=== PATIENT | male | born 1975 | race Caucasian/White ===

== ENCOUNTER 2018-05-18 17:41 | Inpatient (IN) | payer OTHER ==
[2018-05-18 18:40] VITALS: BMI 22.4
--- NOTE | 2018-05-18 19:29 | HP ---
CIWA Score Nausea/Vomitin-No Nausea/No Vomiting Muscle Tremors: 4-Moderate,w/Arms Extend Anxiety: 3 Agitation: 3 Paroxysmal Sweats: 3 Orientation: 0-Oriented Tacttile Disturbances: 0-None Auditory Disturbances: 0-None Visual Disturbances: 0-None Headache: 3-Moderate CIWA-Ar Total Score: 16 - Admission Criteria [facility]ASAS Guidelines: Admission for Medically Managed Detox: Requires at least one of the followin. CIWA greater than 12 2. Seizures within the past 24 hours 3. Delirium tremens within the past 24 hours 4. Hallucinations within the past 24 hours 5. Acute intervention needed for co occurring medical disorder 6. Acute intervention needed for co occurring psychiatric disorder 7. Severe withdrawal that cannot be handled at a lower level of care (continued vomiting, continued diarrhea, abnormal vital signs) requiring intravenous medication and/or fluids 8. Admission ROS BHS - HPI Chief Complaint: I need to get help and need to stop drinking. Allergies/Adverse Reactions: Allergies Allergy/AdvReac Type Severity Reaction Status Date / Time No Known Allergies Allergy Verified 05/18/18 19:22 History of Present Illness: pt is a 43yr old male with a history of alcohol dependence seeking detox for treatment. Exam Limitations: Intoxication - Ebola screening Have you traveled outside of the country in the last 21 days: No (N) Have you had contact with anyone from an Ebola affected area: No Have you been sick,other than usual withdrawal symptoms: No Do you have a fever: No - Review of Systems Constitutional: Diaphoresis, Night Sweats, Changes in sleep EENT: reports: No Symptoms Reported Respiratory: reports: No Symptoms reported Cardiac: reports: Syncope GI: reports: Diarrhea, Poor Appetite, Poor Fluid Intake, Indigestion : reports: No Symptoms Reported Musculoskeletal: reports: Muscle Pain Integumentary: reports: Flushing, Sweating Neuro: reports: Headache, Tingling, Tremors Endocrine: reports: Excessive Sweating, Flushing, Intolerance to Cold, Intolerance to Heat Hematology: reports: No Symptoms Reported Psychiatric: reports: No Sypmtoms Reported, Judgement Intact, Mood/Affect Appropiate, Orientated x3, Agitated Other Systems: Reviewed and Negative Patient History - Patient Medical History Hx Anemia: No Hx Asthma: No Hx Chronic Obstructive Pulmonary Disease (COPD): No Hx Cancer: No Hx Cardiac Disorders: No Hx Congestive Heart Failure: No Hx Hypertension: No Hx Hypercholesterolemia: No Hx Pacemaker: No HX Cerebrovascular Accident: No Hx Seizures: No Hx Dementia: No Hx Diabetes: No Hx Gastrointestinal Disorders: No Hx Liver Disease: No Hx Genitourinary Disorders: No Hx Sexually Transmitted Disorders: No Hx Renal Disease (ESRD): No Hx Thyroid Disease: No Hx Human Immunodeficiency Virus (HIV): No (negative) Hx Hepatitis C: No (negative) Hx Depression: No Hx Suicide Attempt: No Hx Bipolar Disorder: No Hx Schizophrenia: No - Patient Surgical History Past Surgical History: No - PPD History Previous Implant?: Yes Documented Results: Negative w/proof PPD to be Administered?: Yes - Reproductive History Patient is a Female of Child Bearing Age (11 -55 yrs old): No - Smoking Cessation Smoking history: Current every day smoker Have you smoked in the past 12 months: Yes Aproximately how many cigarettes per day: 25 Hx Chewing Tobacco Use: No Initiated information on smoking cessation: Yes 'Breaking Loose' booklet given: 05/18/18 - Substance & Tx. History Hx Alcohol Use: Yes Hx Substance Use: No Substance Use Type: Alcohol Hx Substance Use Treatment: Yes (last detox 3moths ago) - Substances Abused Alcohol Route: Oral Frequency: Daily Amount used: 5liters beer/vodka Age of first use: 16 Date of Last Use: 05/18/18 Family Disease History - Family Disease History Family Disease History: CA: Father ( prostate CA) Admission Physical Exam BHS - Vital Signs Vital Signs: Vital Signs - 24 hr 05/18/18 18:39 Temperature 98.8 F Pulse Rate 116 H Respiratory 18 Rate Blood Pressure 144/93 - Physical General Appearance: Yes: Appropriately Dressed, Moderate Distress, Tremorous, Irritable, Sweating, Anxious HEENTM: Yes: Hearing grossly Normal, Normal Voice, Nasal Congestion, Rhinorrhea Respiratory: Yes: Lungs Clear, Normal Breath Sounds, No Respiratory Distress Neck: Yes: No masses,lesions,Nodules Breast: Yes: Within Normal Limits Cardiology: Yes: Regular Rhythm, Regular Rate, S1, S2 Abdominal: Yes: Normal Bowel Sounds, Non Tender, Flat Genitourinary: Yes: Within Normal Limits Back: Yes: Normal Inspection Musculoskeletal: Yes: Gait Steady, Back pain Extremities: Yes: Normal Capillary Refill, Normal Inspection, Non-Tender, Tremors Neurological: Yes: Fully Oriented, Alert, Normal Response Integumentary: Yes: Normal Color, Diaphoresis Lymphatic: Yes: Within Normal Limits - Diagnostic (1) Alcohol dependence with uncomplicated withdrawal Current Visit: Yes Status: Chronic (2) Nicotine dependence Current Visit: Yes Status: Chronic Qualifiers: Nicotine product type: cigarettes Substance use status: uncomplicated Qualified Code(s): F17.210 - Nicotine dependence, cigarettes, uncomplicated Cleared for Admission [facility] - Detox or Rehab [facility] Level of Care: Medically Managed Detox Regimen/Protocol: Librium [facility] Breath Alcohol Content Breath Alcohol Content: 0.135 Urine Drug Screen - Results Drug Screen Negative: Yes
[2018-05-18] MEDS ORDERED: chlordiazePOXIDE HCL 25 MG CAPSULE PO ONE (19:32)
[2018-05-18] MEDS ORDERED: MAGNESIUM CITRATE 300 ML BOTTLE PO PRN (19:32)
[2018-05-18] MEDS ORDERED: ACETAMINOPHEN 325 MG TABLET (FP) PO PRN (19:32)
[2018-05-18] MEDS ORDERED: NICOTINE POLACRILEX 4 MG GUM BC PRN (19:32)
[2018-05-18] MEDS ORDERED: MAGNESIUM HYDROX 2400MG/30ML ORAL SUSPENSION 30 ML CUP PO PRN (19:32)
[2018-05-18] MEDS ORDERED: P-EPHED 60MG/TRIPROLIDI 2.5MG TABLET PO PRN (19:32)
[2018-05-18] MEDS ORDERED: hydrOXYzine PAMOATE 50 MG CAPSULE (FP) PO PRN (19:32)
[2018-05-18] MEDS ORDERED: MAG HYDROX/AL HYDROX/SIMETH 30 ML UNIT-DOSE CUP PO PRN (19:32)
[2018-05-18] MEDS ORDERED: chlordiazePOXIDE HCL 25 MG CAPSULE PO PRN (19:32)
[2018-05-18] MEDS ORDERED: MENTHOL/PHENOL 1 EACH UD MM PRN (19:32)
[2018-05-18] MEDS ORDERED: IBUPROFEN 400 MG TABLET (FP) PO PRN (19:32)
[2018-05-18] MEDS ORDERED: guaiFENesin/D-METHORPHAN HB 10 ML UNIT-DOSE CUPS PO PRN (19:32)
[2018-05-18] MEDS ORDERED: LOPERAMIDE HCL 2 MG CAPSULE PO PRN (19:32)
[2018-05-18] MEDS: THIAMINE HCL 100 MG TABLET (FP) PO SCH (21:26)
[2018-05-18] MEDS: chlordiazePOXIDE HCL 25 MG CAPSULE PO SCH (23:15)
[2018-05-19] MEDS: chlordiazePOXIDE HCL 25 MG CAPSULE PO SCH ×4 (05:44→22:11)
--- NOTE | 2018-05-19 10:16 | PN ---
S CIWA - CIWA Score Nausea/Vomitin-Mild Nausea/No Vomiting Muscle Tremors: 3 Anxiety: 2 Agitation: 3 Paroxysmal Sweats: 1-Minimal Palms Moist Orientation: 1-Uncertain about Date Tacttile Disturbances: 1-Very Mild Itch/Numbness Auditory Disturbances: 0-None Visual Disturbances: 0-None Headache: 1-Very Mild CIWA-Ar Total Score: 13 BHS Progress Note (SOAP) Subjective: sweat mild gi distress tremor social with peers in day room Objective: 05/19/18 10:16 Vital Signs Temperature 97.0 F L 05/19/18 06:51 Pulse Rate 91 H 05/19/18 06:51 Respiratory Rate 18 05/19/18 06:51 Blood Pressure 112/78 05/19/18 06:51 O2 Sat by Pulse Oximetry (%) lab noted Assessment: 05/19/18 10:17 alcohol withdrawal sx Plan: continue alcohol detox
[2018-05-19] MEDS: PRENATAL VITAMINS W/ FOLIC ACID TABLET (FP) PO SCH (10:32)
[2018-05-19] MEDS: NICOTINE 21 MG/24 HOURS TOPICAL PATCH TD SCH (10:32)
[2018-05-19 10:37] LABS: HEMOGLOBIN 13.6 GM/dL (11.7-16.9); MCH 31.3 pg (25.7-33.7); MCHC 32.4 g/dl (32.0-35.9); MEAN CELL VOLUME 96.7 fl (80-96); MEAN PLT VOLUME 8.3 fl (7.5-11.1); PLATELET COUNT 255 K/MM3 (134-434); RBC 4.35 M/mm3 (4.00-5.60); WHITE BLOOD COUNT 8.9 K/mm3 (4.0-10.0)
[2018-05-19 11:57] LABS: ALBUMIN 3.3 g/dl (3.4-5.0); ALK PHOS 65 U/L (45-117); ANION GAP 9 MMOL/L (8-16); BILIRUBIN,TOTAL 0.4 mg/dL (0.2-1); BLOOD UREA NITROGEN 19 mg/dL (7-18); CALCIUM 8.6 mg/dL (8.5-10.1); CHLORIDE 103 mmol/L (98-107); CO2 27 mmol/L (21-32); GLUCOSE,RANDOM 80 mg/dL (74-106); POTASSIUM 4.4 mmol/L (3.5-5.1); SGOT/AST 14 U/L (15-37); SGPT/ALT 24 U/L (13-61); SODIUM 139 mmol/L (136-145); TOT PROT 6.3 g/dl (6.4-8.2)
[2018-05-19] MEDS: PETROLATUM, WHITE 30 GM TUBE TP SCH (12:06)
[2018-05-19] MEDS: CLOTRIMAZOLE 1% CREAM 15 GM TUBE TP SCH ×2 (12:06→22:14)
[2018-05-19 19:04] LABS: URINE APPEARANCE CLEAR; URINE BILIRUBIN NEGATIVE (<2.0 mg/dL); URINE COLOR LTYELLOW; URINE GLUCOSE (UA) NEGATIVE (NEGATIVE); URINE KETONE NEGATIVE (NEGATIVE); URINE LEUK ESTERASE NEGATIVE (NEGATIVE); URINE NITRITE NEGATIVE (NEGATIVE); URINE PROTEIN NEGATIVE (NEGATIVE); URINE UROBILINOGEN NEGATIVE mg/dL (0.2-1.0)
[2018-05-19] MEDS: THIAMINE HCL 100 MG TABLET (FP) PO SCH (22:11)
[2018-05-19] MEDS: MELATONIN 5 MG TABLETS PO PRN (22:13)
[2018-05-20] MEDS: chlordiazePOXIDE HCL 25 MG CAPSULE PO SCH ×3 (06:03→18:07)
[2018-05-20] MEDS: BACITRACIN 0.9 GM PACKET TP SCH (10:46)
[2018-05-20] MEDS: PETROLATUM, WHITE 30 GM TUBE TP SCH (10:46)
[2018-05-20] MEDS: CLOTRIMAZOLE 1% CREAM 15 GM TUBE TP SCH ×2 (10:46→22:07)
[2018-05-20] MEDS: PRENATAL VITAMINS W/ FOLIC ACID TABLET (FP) PO SCH (10:46)
[2018-05-20] MEDS: NICOTINE 21 MG/24 HOURS TOPICAL PATCH TD SCH (10:46)
--- NOTE | 2018-05-20 15:19 | PN ---
[facility] CIWA - CIWA Score Nausea/Vomitin-No Nausea/No Vomiting Muscle Tremors: 1-None Visible, but [place] Anxiety: 3 Agitation: 3 Paroxysmal Sweats: 2 Orientation: 0-Oriented Tacttile Disturbances: 0-None Auditory Disturbances: 0-None Visual Disturbances: 0-None Headache: 2-Mild CIWA-Ar Total Score: 11 S Progress Note (SOAP) Subjective: PATIENT C/O IRRITATION TO NARES, ANXIETY/RESTLESSNESS, SWEATING AND SHAKES. Objective: 05/20/18 15:16 Vital Signs Temperature 98.7 F 05/20/18 13:13 Pulse Rate 99 H 05/20/18 13:13 Respiratory Rate 18 05/20/18 13:13 Blood Pressure 123/82 05/20/18 13:13 O2 Sat by Pulse Oximetry (%) Laboratory Tests 05/18/18 05/19/18 05/19/18 23:00 07:00 07:00 WBC 8.9 RBC 4.35 Hgb 13.6 Hct 42.0 MCV 96.7 H MCH 31.3 MCHC 32.4 RDW 14.0 Plt Count 255 MPV 8.3 Sodium 139 Potassium 4.4 Chloride 103 Carbon Dioxide 27 Anion Gap 9 BUN 19 H Creatinine 1.0 Creat Clearance w eGFR > 60 Random Glucose 80 Calcium 8.6 Total Bilirubin 0.4 AST 14 L ALT 24 Alkaline Phosphatase 65 Total Protein 6.3 L Albumin 3.3 L Urine Color Ltyellow Urine Appearance Clear Urine pH 5.0 Ur Specific [place] 1.011 Urine Protein Negative Urine Glucose (UA) Negative Urine Ketones Negative Urine Blood Negative Urine Nitrite Negative Urine Bilirubin Negative Urine Urobilinogen Negative Ur Leukocyte Esterase Negative RPR Titer 05/19/18 07:00 WBC RBC Hgb Hct MCV MCH MCHC RDW Plt Count MPV Sodium Potassium Chloride Carbon Dioxide Anion Gap BUN Creatinine Creat Clearance w eGFR Random Glucose Calcium Total Bilirubin AST ALT Alkaline Phosphatase Total Protein Albumin Urine Color Urine Appearance Urine pH Ur Specific [place] Urine Protein Urine Glucose (UA) Urine Ketones Urine Blood Urine Nitrite Urine Bilirubin Urine Urobilinogen Ur Leukocyte Esterase RPR Titer Nonreactive PE: SKIN + FACIAL MOISTURE AND FLUSHING NARES WITH MILD IRRITATION ALERT AND ORIENTED X 3 EXT MILD TREMORS FELT ANXIOUS AND MILD IRRITABILITY Assessment: 05/20/18 15:17 WITHDRAWAL SX Plan: CONTINUE DETOX ENCOURAGE ORAL FLUIDS BACITRACIN TO NARES DAILY CONTINUE TO MONITOR CLINICALLY
[2018-05-20] MEDS: THIAMINE HCL 100 MG TABLET (FP) PO SCH (22:07)
[2018-05-20] MEDS: MELATONIN 5 MG TABLETS PO PRN (22:08)
[2018-05-20] MEDS: chlordiazePOXIDE 5 MG CAPSULE PO SCH (22:08)
[2018-05-21] MEDS: chlordiazePOXIDE 5 MG CAPSULE PO SCH ×3 (06:04→17:30)
[2018-05-21] MEDS: BACITRACIN 0.9 GM PACKET TP SCH (10:29)
[2018-05-21] MEDS: CLOTRIMAZOLE 1% CREAM 15 GM TUBE TP SCH ×2 (10:29→23:10)
[2018-05-21] MEDS: NICOTINE 21 MG/24 HOURS TOPICAL PATCH TD SCH (10:30)
[2018-05-21] MEDS: PETROLATUM, WHITE 30 GM TUBE TP SCH (10:30)
[2018-05-21] MEDS: PRENATAL VITAMINS W/ FOLIC ACID TABLET (FP) PO SCH (10:30)
--- NOTE | 2018-05-21 13:55 | PN ---
BHS Progress Note (SOAP) Subjective: Interrupted sleep, mild shakes and sweats Objective: 05/21/18 13:54 Vital Signs Temperature 97.0 F L 05/21/18 10:45 Pulse Rate 97 H 05/21/18 10:45 Respiratory Rate 18 05/21/18 10:45 Blood Pressure 132/91 05/21/18 10:45 O2 Sat by Pulse Oximetry (%) Laboratory Last Values WBC 8.9 K/mm3 (4.0-10.0) 05/19/18 07:00 RBC 4.35 M/mm3 (4.00-5.60) 05/19/18 07:00 Hgb 13.6 GM/dL (11.7-16.9) 05/19/18 07:00 Hct 42.0 % (35.4-49) 05/19/18 07:00 MCV 96.7 fl (80-96) H 05/19/18 07:00 MCH 31.3 pg (25.7-33.7) 05/19/18 07:00 MCHC 32.4 g/dl (32.0-35.9) 05/19/18 07:00 RDW 14.0 % (11.9-15.9) 05/19/18 07:00 Plt Count 255 K/MM3 (134-434) 05/19/18 07:00 MPV 8.3 fl (7.5-11.1) 05/19/18 07:00 Sodium 139 mmol/L (136-145) 05/19/18 07:00 Potassium 4.4 mmol/L (3.5-5.1) 05/19/18 07:00 Chloride 103 mmol/L (98-107) 05/19/18 07:00 Carbon Dioxide 27 mmol/L (21-32) 05/19/18 07:00 Anion Gap 9 MMOL/L (8-16) 05/19/18 07:00 BUN 19 mg/dL (7-18) H 05/19/18 07:00 Creatinine 1.0 mg/dL (0.55-1.3) 05/19/18 07:00 Creat Clearance w eGFR > 60 (>60) 05/19/18 07:00 Random Glucose 80 mg/dL (74-106) 05/19/18 07:00 Calcium 8.6 mg/dL (8.5-10.1) 05/19/18 07:00 Total Bilirubin 0.4 mg/dL (0.2-1) 05/19/18 07:00 AST 14 U/L (15-37) L 05/19/18 07:00 ALT 24 U/L (13-61) 05/19/18 07:00 Alkaline Phosphatase 65 U/L (45-117) 05/19/18 07:00 Total Protein 6.3 g/dl (6.4-8.2) L 05/19/18 07:00 Albumin 3.3 g/dl (3.4-5.0) L 05/19/18 07:00 Urine Color Ltyellow 05/18/18 23:00 Urine Appearance Clear 05/18/18 23:00 Urine pH 5.0 (5.0-8.0) 05/18/18 23:00 Ur Specific [place] 1.011 (1.010-1.035) 05/18/18 23:00 Urine Protein Negative (NEGATIVE) 05/18/18 23:00 Urine Glucose (UA) Negative (NEGATIVE) 05/18/18 23:00 Urine Ketones Negative (NEGATIVE) 05/18/18 23:00 Urine Blood Negative (NEGATIVE) 05/18/18 23:00 Urine Nitrite Negative (NEGATIVE) 05/18/18 23:00 Urine Bilirubin Negative (<2.0 mg/dL) 05/18/18 23:00 Urine Urobilinogen Negative mg/dL (0.2-1.0) 05/18/18 23:00 Ur Leukocyte Esterase Negative (NEGATIVE) 05/18/18 23:00 RPR Titer Nonreactive (NONREACTIVE) 05/19/18 07:00 Labs noted Assessment: 05/21/18 13:55 Withdrawal sx Plan: Continue detox
[2018-05-21] MEDS: THIAMINE HCL 100 MG TABLET (FP) PO SCH (22:10)
[2018-05-21] MEDS: MELATONIN 5 MG TABLETS PO PRN (22:10)
[2018-05-21] MEDS: chlordiazePOXIDE HCL 10 MG CAPSULE PO SCH (22:10)
[2018-05-22 06:42] VITALS: BP 105/69; PULSE 68; TEMP 98.2
[2018-05-22] MEDS: chlordiazePOXIDE HCL 10 MG CAPSULE PO SCH (06:57)
--- NOTE | 2018-05-22 12:36 | DS ---
[facility] Detox Discharge Summary Admission Date: 05/18/18 Discharge Date: 05/22/18 - History Present History: Alcohol Dependence Additional Comments: Patient completed detox successfully. Patient is A, A, Ox3, a little anxious to leave, in nad, vss, ambulatory. Patient instructed to follow up with his PCP within 1-2 weeks. Pertinent Past History: Alcohol dependence Nicotine dependence - Physical Exam Results Vital Signs: Vital Signs Temperature 98.2 F 05/22/18 06:42 Pulse Rate 68 05/22/18 06:42 Respiratory Rate 18 05/22/18 06:42 Blood Pressure 105/69 05/22/18 06:42 O2 Sat by Pulse Oximetry (%) Pertinent Admission Physical Exam Findings: Withdrawal symptoms Laboratory Tests 05/18/18 05/19/18 05/19/18 23:00 07:00 07:00 WBC 8.9 RBC 4.35 Hgb 13.6 Hct 42.0 MCV 96.7 H MCH 31.3 MCHC 32.4 RDW 14.0 Plt Count 255 MPV 8.3 Sodium 139 Potassium 4.4 Chloride 103 Carbon Dioxide 27 Anion Gap 9 BUN 19 H Creatinine 1.0 Creat Clearance w eGFR > 60 Random Glucose 80 Calcium 8.6 Total Bilirubin 0.4 AST 14 L ALT 24 Alkaline Phosphatase 65 Total Protein 6.3 L Albumin 3.3 L Urine Color Ltyellow Urine Appearance Clear Urine pH 5.0 Ur Specific [place] 1.011 Urine Protein Negative Urine Glucose (UA) Negative Urine Ketones Negative Urine Blood Negative Urine Nitrite Negative Urine Bilirubin Negative Urine Urobilinogen Negative Ur Leukocyte Esterase Negative RPR Titer 05/19/18 07:00 WBC RBC Hgb Hct MCV MCH MCHC RDW Plt Count MPV Sodium Potassium Chloride Carbon Dioxide Anion Gap BUN Creatinine Creat Clearance w eGFR Random Glucose Calcium Total Bilirubin AST ALT Alkaline Phosphatase Total Protein Albumin Urine Color Urine Appearance Urine pH Ur Specific [place] Urine Protein Urine Glucose (UA) Urine Ketones Urine Blood Urine Nitrite Urine Bilirubin Urine Urobilinogen Ur Leukocyte Esterase RPR Titer Nonreactive Labs reviewed - Treatment Hospital Course: Detox Protocol Followed, Detoxed Safely, Responded well, Discharged Condition Good - Medication Discharge Medications: Ambulatory Orders NK [No Known Home Medication] 05/18/18 - Diagnosis (1) Alcohol dependence with uncomplicated withdrawal Status: Acute (2) Nicotine dependence Status: Chronic Qualifiers: Nicotine product type: cigarettes Substance use status: uncomplicated Qualified Code(s): F17.210 - Nicotine dependence, cigarettes, uncomplicated - AMA Did Patient Leave Against Medical Advice: No (F/U with PCP within 1-2 weeks)
== END 2018-05-22 09:22 | disposition home or self-care (01) | DRG 775 ==
LOC: YASAS 17:41 → Y3N 20:21
PROC: HZ2ZZZZ Detoxification Services for Substance Abuse Treatment (ICD-10-PCS; principal; 2018-05-18)
DX: F10.230 Alcohol dependence with withdrawal, uncomplicated (principal); F17.210 Nicotine dependence, cigarettes, uncomplicated; Z59.0 Homelessness
CPT/HCPCS: 36415; 80053; 81003; 85027; 86593